=== PATIENT | male | born 1995 | race Two or more races ===

== ENCOUNTER 2017-05-28 15:26 | Emergency (ER) | payer OTHER ==
[~2017-05-28] VITALS: Ht 193 cm; Wt 85.3 kg
[2017-05-28] MEDS ORDERED: NKM (15:36)
[2017-05-28] MEDS ORDERED: AMOXICILLIN500 MG ORAL (15:49)
[2017-05-28] MEDS ORDERED: IBUPROFEN600 MG ORAL (15:49)
[2017-05-28] MEDS ORDERED: PREDNISONE20 MG ORAL (15:49)
[2017-05-28] MEDS ORDERED: PROAIR HFA8.5 GM INH (15:49)
[2017-05-28 16:00] VITALS: BP 117/80
--- NOTE | 2017-05-28 20:30 | Emergency Room Report ---
History of Present Illness General Chief Complaint: Upper Respiratory Illness Source: Patient Present Illness [facility] The patient is a 22-year-old male presenting for sore throat, cough, subjective fevers, and wheezing. He states his a history of asthma but has not been using albuterol. The symptoms began approximately one week prior and have been worsening. Pain is a 7/10 dull ache to the throat. Worse with swallowing. He denies any known sick contacts recent travel. She denies any other symptoms including N, V, rash, neck pain/stiffness, SOB Allergies: Coded Allergies: No Known Allergies (Unverified , 05/28/17) Patient History Past Medical History: see triage record Pertinent Family History: none Reviewed Nursing Documentation: PMH: Agreed, PSxH: Agreed Nursing Documentation-PMH Hx Asthma: Yes Review of Systems All Other Systems: negative except mentioned in HPI Physical Exam Vital Signs Date Time Temp Pulse Resp B/P (MAP) Pulse Ox O2 Delivery O2 Flow Rate FiO2 05/28/17 15:33 97.9 73 16 119/94 98 Room Air Sp02 EP Interpretation: reviewed, normal General Appearance: no apparent distress, alert, GCS 15, non-toxic Head: normocephalic, atraumatic Eyes: bilateral eye normal inspection, bilateral eye PERRL ENT: hearing grossly normal, no angioedema, normal voice, uvula midline, tonsillar swelling, pharyngeal erythema, tonsillar exudate Neck: full range of motion, supple/symm/no masses Respiratory: chest non-tender, normal breath sounds, speaking full sentences, wheezing - mild diffuse Cardiovascular #1: regular rate, rhythm, no edema Musculoskeletal: back normal, gait/station normal, normal range of motion, non- tender Neurologic: alert, oriented x3, responsive, motor strength/tone normal, sensory intact, speech normal Skin: normal color, no rash, warm/dry, well hydrated Lymphatic: adenopathy - cervical Medical Decision Making PA Attestation Dr. callejas is my supervising physician. Patient management was discussed with my supervising physician Diagnostic Impression: Primary Impression: Pharyngitis, acute Qualified Codes: J02.9 - Acute pharyngitis, unspecified Additional Impression: Asthma Qualified Codes: J45.20 - Mild intermittent asthma, uncomplicated ER Course The patient is a 22-year-old male presenting for sore throat, cough, subjective fevers, and wheezing. Differential diagnosis include but not limited to pharyngitis, sinusitis, AOM, bronchitis, PNA Physical exam: Vitals within normal limits. Afebrile. No apparent distress HEENT exam: There is bilateral tonsillar edema, erythema, and exudate. Uvula midline. Moist mucous membranes. There is bilateral cervical lymphadenopathy. Lungs diffuse mild wheezing to auscultation bilaterally Skin is warm and dry. No rash The patient will be discharged home with a prescription for amoxicillin, prednisone, and albuterol and is given ER precautions. Patient will followup with primary care Last Vital Signs Date Time Temp Pulse Resp B/P (MAP) Pulse Ox O2 Delivery O2 Flow Rate FiO2 05/28/17 16:00 97.9 77 18 117/80 97 Room Air Status: improved Disposition: HOME, SELF-CARE Condition: Improved Scripts Albuterol Sulfate* (PROAIR HFA*) 8.5 Gm Hfa.aer.ad 2 PUFFS INH Q6H, #8.5 GM 0 Refills Prov: SALAZAR DOAN.A. 05/28/17 Prednisone* (PREDNISONE*) 20 Mg Tablet 20 MG ORAL DAILY, #5 TAB 0 Refills Prov: TERZIANSALAZAR P.A. 05/28/17 Amoxicillin* (AMOXIL*) 500 Mg Capsule 500 MG ORAL Q12HR, #20 CAP Prov: TERCINDYANSALAZAR P.A. 05/28/17 Ibuprofen* (MOTRIN*) 600 Mg Tablet 600 MG ORAL Q8H Y for For Pain, #30 TAB 0 Refills Prov: TERERIC BRENNANY P.A. 05/28/17 Referrals: NOT CHOSEN [facility]/,REFERRING (PCP) Patient Instructions: Upper Respiratory Infection, Adult Additional Instructions: I discussed my findings with the patient. All questions and concerns have been answered. Treatment and medication compliance have been addressed. I advised the patient that they need to follow up with PMD in 3-5 days. Return to ED if pain remains or worsens, cough worsens or remains, you notice blood in your sputum, you notice wheezing, you experience a fever, or if needed for any reason. Patient verbalized understanding of discharge instructions. SALAZAR DOAN May 28, 2017 20:30
== END 2017-05-28 16:00 | disposition home or self-care (01) ==
LOC: EMR 16:00
DX: J02.9 Acute pharyngitis, unspecified (principal); J45.20 Mild intermittent asthma, uncomplicated
CPT/HCPCS: 99284